=== PATIENT | female | born 1955 | race Caucasian/White ===

== ENCOUNTER 2017-09-17 10:39 | Inpatient (IN) | payer OTHER ==
[~2017-09-17] VITALS: Ht 177.8 cm; Wt 107.1 kg
[2017-09-17] VITALS (8 sets, daily range): BP systolic 79–121; BP diastolic 43–86
[2017-09-17] MEDS ORDERED: SODIUM CHLORIDE 0.9% 1,000 ML IV ONE ×2 (10:46)
[2017-09-17] MEDS ORDERED: DIPHENOXYLATE W/ATROPINE 2.5 MG TAB PO ONE (11:00)
[2017-09-17] MEDS ORDERED: ONDANSETRON HCL 4 MG/2 ML VIAL IV ONE (11:00)
[2017-09-17] MEDS ORDERED: PANTOPRAZOLE 40 MG/10 ML VIAL IV ONE (13:00)
[2017-09-17] MEDS ORDERED: PANTOPRAZOLE 80 MG in SODIUM CHL 0.9% 60 ML IV ONE (13:00)
[2017-09-17 13:34] LABS: Hemoglobin 11.9 g/dL (12.2-16.2)
[2017-09-17 13:36] LABS: Hematocrit 38.2 % (36.0-46.0); Mean Corpuscular Hemoglobin 28.6 pg (28.0-32.0); Mean Corpuscular Hgb Conc. 31.2 g/dL (32.0-36.0); Mean Corpuscular Volume 91.6 fL (80.0-100.0); Platelet Count (auto) 254 10^3/uL (140-450); Red Blood Cells 4.17 10^6/uL (4.0-5.20); Red Cell Distribution Width 16.1 % (11.8-14.3); White Blood Cell 25.2 10^3/uL (4.4-10.8)
[2017-09-17 13:48] LABS: Basophils % (manual) 0 (0.0-2.0); Blast Cells 0; Eosinophils % (manual) 0 (0-7); Metamyelocytes % 0; Myelocytes % 0; Promyelocytes % 0; Reactive Lymphocytes 0
[2017-09-17 13:50] LABS: Urine Bacteria NONE SEEN /hpf (None Seen); Urine Blood 2+ /uL (Negative); Urine Mucus FEW (None Seen); Urine WBC 9 /hpf (0 - 5)
[2017-09-17 13:58] LABS: Albumin 2.5 g/dL (3.4-5.0); BUN/Creatinine Ratio 17.6; Bilirubin, Total 0.6 mg/dL (0.2-1.0); Calcium 8.2 mg/dL (8.5-10.1); Potassium 3.6 mmol/L (3.5-5.1); Total Protein 4.4 g/dL (6.4-8.2)
[2017-09-17 14:00] LABS: Lactic Acid w/Reflex 5.1 mmol/L (0.4-2.0)
[2017-09-17 14:08] LABS: INR > 10 (0.9-1.15)
[2017-09-17 14:42] LABS: Band Neutrophils % (manual) 5; Lymphocytes % (manual) 4 (10.0-50.0); Monocytes % (manual) 6 (0-12)
[2017-09-17] MEDS ORDERED: metroNIDAZOLE 500MG/100ML 100 ML IV ONE (14:45)
[2017-09-17] MEDS ORDERED: PIPERACILLIN-TAZOB 3.375GM 100 ML IV ONE (14:45)
[2017-09-17] MEDS ORDERED: PROMETHAZINE HCL 25 MG/ML 1ML IV ONE (15:00)
[2017-09-17] MEDS ORDERED: PROMETHAZINE HCL 25 MG/ML 1ML ONE (15:01)
[2017-09-17] MEDS ORDERED: PROMETHAZINE HCL 25 MG/ML 1ML IV PRN (15:15)
[2017-09-17] MEDS ORDERED: NALBUPHINE HCL 10 MG/1ml INJECTION IM PRN (15:15)
[2017-09-17] MEDS ORDERED: cefTRIAXone 1GM/10ml IVPUSH 10 ML IV ONE (15:15)
[2017-09-17] MEDS ORDERED: NITROGLYCERIN 0.4 MG SL TAB SL PRN (15:45)
[2017-09-17] MEDS ORDERED: PHYTONADIONE (VIT K)10 MG/ML 1ML VIAL SUBCUT ONE (15:45)
[2017-09-17] MEDS ORDERED: TEMAZEPAM 15 MG CAP PO PRN (15:45)
[2017-09-17] MEDS ORDERED: SODIUM CHLORIDE 0.9% 2,000 ML IV ONE (15:45)
[2017-09-17] MEDS: SODIUM CHLORIDE 0.9% 1,000 ML IV SCH (15:58)
[2017-09-17 17:16] LABS: Hematocrit 31.2 % (36.0-46.0); Hemoglobin 9.7 g/dL (12.2-16.2)
[2017-09-17] MEDS: ONDANSETRON HCL 4 MG/2 ML VIAL IV PRN ×2 (17:50→22:03)
[2017-09-17 19:58] LABS: Hematocrit 32.1 % (36.0-46.0); Hemoglobin 10.2 g/dL (12.2-16.2)
[2017-09-17] MEDS ORDERED: FAMOTIDINE 20 MG TAB PO SCH (22:00)
[2017-09-17] MEDS: metroNIDAZOLE 500MG/100ML 100 ML IV SCH (22:03)
[2017-09-17] MEDS: MORPHINE SULF INJ 2 MG/ML SYRINGE 1ML IV PRN (22:18)
[2017-09-18] VITALS (86 sets, daily range): BP systolic 52–150; BP diastolic 35–108
[2017-09-18] MEDS ORDERED: NOREPINEPHRINE 8 MG/250ML KIT 250 ML IV ONE (02:55)
[2017-09-18] MEDS: NOREPINEPHRINE 8 MG/250ML KIT 250 ML IV SCH ×3 (03:00→23:05)
[2017-09-18] MEDS: MORPHINE SULF INJ 2 MG/ML SYRINGE 1ML IV PRN ×6 (04:19→20:54)
[2017-09-18] MEDS: ONDANSETRON HCL 4 MG/2 ML VIAL IV PRN ×2 (04:19→08:15)
[2017-09-18 04:27] LABS: Basophils # (auto) 0 uL; Eosinophils # (auto) 0 uL; Hemoglobin 7.8 g/dL (12.2-16.2); Monocytes # (auto) 0.8 uL; Neutrophils # (auto) 11.2 uL; Nucleated Red Blood Cells % 0.1 %
[2017-09-18 04:31] LABS: Basophils % (auto) 0.1 % (0.0-2.0); Hematocrit 25.1 % (36.0-46.0); Lymphocytes # (auto) 0.9 uL; Lymphocytes % (auto) 6.7 % (10.0-50.0); Mean Corpuscular Hemoglobin 28.5 pg (28.0-32.0); Mean Corpuscular Hgb Conc. 31.1 g/dL (32.0-36.0); Mean Corpuscular Volume 91.8 fL (80.0-100.0); Monocytes % (auto) 6.1 % (0.0-12.0); Neutrophils % (auto) 87.1 % (37.0-80.0); Platelet Count (auto) 169 10^3/uL (140-450); Red Blood Cells 2.73 10^6/uL (4.0-5.20); Red Cell Distribution Width 16.3 % (11.8-14.3); White Blood Cell 12.8 10^3/uL (4.4-10.8)
[2017-09-18 05:01] LABS: BUN/Creatinine Ratio 23.8; Bilirubin, Total 1.4 mg/dL (0.2-1.0); Calcium 7.1 mg/dL (8.5-10.1); Potassium 4.9 mmol/L (3.5-5.1)
[2017-09-18] MEDS: metroNIDAZOLE 500MG/100ML 100 ML IV SCH (06:00)
[2017-09-18] MEDS: SODIUM CHLORIDE 0.9% 1,000 ML IV SCH ×4 (06:00→18:30)
[2017-09-18] MEDS ORDERED: cefTRIAXone 1GM/10ml IVPUSH 10 ML IV SCH (09:00)
[2017-09-18] MEDS ORDERED: IDARUCIZUMAB 2.5 GM/50 ML VIAL IV ONE (09:00)
[2017-09-18] MEDS: PANTOPRAZOLE 40 MG/10 ML VIAL IV SCH (09:27)
[2017-09-18 09:50] LABS: Hematocrit 30.6 % (36.0-46.0); Hemoglobin 9.6 g/dL (12.2-16.2)
[2017-09-18 10:25] LABS: INR > 10 (0.9-1.15)
[2017-09-18] MEDS: PIPERACILLIN-TAZOB 3.375GM 100 ML IV SCH ×3 (11:57→23:19)
[2017-09-18] MEDS: LINEZOLID 600MG/300ML 300 ML IV SCH ×2 (13:52→23:19)
[2017-09-18] MEDS ORDERED: metroNIDAZOLE 500MG/100ML 100 ML IV SCH (14:00)
[2017-09-18] MEDS ORDERED: phytonadione 10 MG in SODIUM CHL 0.9% 50 ML IV ONE (15:45)
[2017-09-18 15:51] LABS: Hematocrit 25.4 % (36.0-46.0); Hemoglobin 8.3 g/dL (12.2-16.2); Mean Corpuscular Hgb Conc. 32.6 g/dL (32.0-36.0); Mean Corpuscular Volume 92.1 fL (80.0-100.0); Platelet Count (auto) 143 10^3/uL (140-450); Red Blood Cells 2.76 10^6/uL (4.0-5.20); Red Cell Distribution Width 15.4 % (11.8-14.3); White Blood Cell 14.7 10^3/uL (4.4-10.8)
[2017-09-18 15:52] LABS: Basophils % (manual) 0 (0.0-2.0); Blast Cells 0; Eosinophils % (manual) 0 (0-7); Myelocytes % 0; Promyelocytes % 0; Reactive Lymphocytes 0
[2017-09-18 16:33] LABS: Albumin 2.1 g/dL (3.4-5.0); BUN/Creatinine Ratio 24.2; Bilirubin, Total 2.2 mg/dL (0.2-1.0); Potassium 5.5 mmol/L (3.5-5.1); Total Protein 4.3 g/dL (6.4-8.2)
[2017-09-18 16:54] LABS: Fibrinogen 290.4 mg/dL (177-375); INR 1.52 (0.9-1.15); Partial Thromboplastin Time 34.6 sec (23.78-33.04); Prothrombin Time 15.9 sec (9.27-12.13)
[2017-09-18] MEDS ORDERED: SODIUM CHLORIDE 0.9% 500 ML IV ONE (17:30)
[2017-09-18 18:01] LABS: Band Neutrophils % (manual) 57; Lymphocytes % (manual) 8 (10.0-50.0); Monocytes % (manual) 3 (0-12)
[2017-09-18 18:02] LABS: Metamyelocytes % 3
[2017-09-18] MEDS: VANCOMYCIN HCL 125MG/5ML ORAL SOL PO SCH ×2 (18:09→22:00)
[2017-09-19] VITALS (93 sets, daily range): BP systolic 74–152; BP diastolic 33–112
[2017-09-19] MEDS: SODIUM CHLORIDE 0.9% 1,000 ML IV SCH (01:10)
[2017-09-19 01:13] LABS: Mean Corpuscular Hemoglobin 28.9 pg (28.0-32.0); Mean Corpuscular Hgb Conc. 32.1 g/dL (32.0-36.0); Mean Corpuscular Volume 89.9 fL (80.0-100.0); Platelet Count (auto) 122 10^3/uL (140-450); Red Blood Cells 3.45 10^6/uL (4.0-5.20); Red Cell Distribution Width 15.4 % (11.8-14.3); White Blood Cell 17.2 10^3/uL (4.4-10.8)
[2017-09-19 01:22] LABS: Basophils % (manual) 0 (0.0-2.0); Blast Cells 0; Eosinophils % (manual) 0 (0-7); Promyelocytes % 0; Reactive Lymphocytes 0
[2017-09-19 01:32] LABS: Albumin 1.9 g/dL (3.4-5.0); BUN/Creatinine Ratio 22.7; Calcium 6.1 mg/dL (8.5-10.1)
[2017-09-19 01:37] LABS: Potassium 5.7 mmol/L (3.5-5.1)
[2017-09-19 01:41] LABS: Bilirubin, Total 2.6 mg/dL (0.2-1.0); Total Protein 4.3 g/dL (6.4-8.2)
[2017-09-19 01:44] LABS: Band Neutrophils % (manual) 37; Lymphocytes % (manual) 7 (10.0-50.0); Metamyelocytes % 12; Monocytes % (manual) 4 (0-12); Myelocytes % 2
[2017-09-19] MEDS: LINEZOLID 600MG/300ML 300 ML IV SCH (02:36)
[2017-09-19 03:50] LABS: INR 2.1 (0.9-1.15); Prothrombin Time 21.5 sec (9.27-12.13)
[2017-09-19] MEDS: PIPERACILLIN-TAZOB 3.375GM 100 ML IV SCH (05:03)
[2017-09-19] MEDS: VANCOMYCIN HCL 125MG/5ML ORAL SOL PO SCH ×2 (05:03→12:00)
[2017-09-19] MEDS ORDERED: SODIUM POLYSTYRENE SULF 15GM/60ML SUSP PO ONE (05:45)
[2017-09-19] MEDS ORDERED: CALCIUM GLUC 4.65meq/50ml D5AE 50 ML IV ONE (05:45)
[2017-09-19] MEDS ORDERED: CALCIUM GLUC 4.65 MEQ/10ML 10 ML IV ONE (05:57)
[2017-09-19] MEDS ORDERED: DEXTROSE 50% SYRINGE 50 ML IV ONE (05:58)
[2017-09-19] MEDS ORDERED: SODIUM BICARBONATE 8.4% INJ 50ML SYRINGE ONE (05:59)
[2017-09-19] MEDS ORDERED: InsuLIN REG 1unit/0.01ml Soln (100units/ml) IV ONE (06:00)
[2017-09-19] MEDS ORDERED: DEXTROSE (50%) 50ML SYRG IV ONE (06:00)
[2017-09-19] MEDS ORDERED: SODIUM BICARBONATE 50ML VIAL 50 ML in SOD CHL 0.45% 1,000 ML IV SCH (06:00)
[2017-09-19] MEDS ORDERED: InsuLIN REG 1unit/0.01ml Soln (100units/ml) ONE (06:00)
[2017-09-19] MEDS ORDERED: SODIUM BICARBONATE 8.4 % INJ 50ML VIAL IV ONE ×4 (06:00→08:30)
[2017-09-19] MEDS ORDERED: SODIUM BICARBONATE 50ML VIAL 100 ML in SOD CHL 0.45% 1,000 ML IV SCH ×2 (06:45→07:45)
[2017-09-19] MEDS ORDERED: SODIUM BICARBONATE 50ML VIAL 100 ML in SOD CHL 0.45% 1,000 ML IV ONE (06:45)
[2017-09-19] MEDS ORDERED: ROCURONIUM 10MG/ML 10ML VIAL IV ONE (08:01)
[2017-09-19] MEDS ORDERED: ETOMIDATE (2MG/ML) 20ML VIAL IV ONE (08:01)
[2017-09-19] MEDS ORDERED: SUCCINYLCHOLINE CHLORIDE 20 MG/ML 10ML VIAL IV ONE (08:02)
[2017-09-19] MEDS ORDERED: MIDAZOLAM DRIP 50 mg/50mL 50 ML IV ONE (08:13)
[2017-09-19] MEDS ORDERED: EPOETIN ALFA 10,000 UNIT/1 ML VIAL IV ONE (09:00)
[2017-09-19] MEDS: MIDAZOLAM DRIP 50 mg/50mL 50 ML IV SCH (09:00)
[2017-09-19] MEDS ORDERED: SODIUM CHL 0.9% 1000 ML BAG XX ONE (09:00)
[2017-09-19] MEDS: SODIUM BICARBONATE 50ML VIAL 150 ML in D5W 5% 1,000 ML IV SCH ×3 (09:43→20:38)
[2017-09-19 12:36] LABS: Albumin 1.7 g/dL (3.4-5.0); Potassium 4.5 mmol/L (3.5-5.1)
[2017-09-19 12:47] LABS: Bilirubin, Total 2.3 mg/dL (0.2-1.0)
[2017-09-19 13:14] LABS: BUN/Creatinine Ratio 20.9
[2017-09-19] MEDS: PIPERACILLIN-TAZOB 2.25GM 50 ML IV SCH ×2 (14:27→21:58)
[2017-09-19] MEDS: PANTOPRAZOLE 40 MG/10 ML VIAL IV SCH (14:27)
[2017-09-19] MEDS ORDERED: PHENYLEPHRINE INJ 20 MG in SODIUM CHL 0.9% 250 ML IV SCH (14:43)
[2017-09-19] MEDS ORDERED: PHENYLEPHRINE IV 250 ML IV ONE (14:53)
[2017-09-19] MEDS: NOREPINEPHRINE 8 MG/250ML KIT 250 ML IV SCH (23:27)
[2017-09-19] MEDS: PHENYLEPHRINE INJ 20 MG in D5W 5% 250 ML IV SCH (23:45)
[2017-09-20] VITALS (77 sets, daily range): BP systolic 99–141; BP diastolic 54–80
[2017-09-20] MEDS: LINEZOLID 600MG/300ML 300 ML IV SCH (00:37)
[2017-09-20] MEDS: MIDAZOLAM DRIP 50 mg/50mL 50 ML IV SCH ×5 (00:38→21:52)
[2017-09-20] MEDS: PHENYLEPHRINE INJ 20 MG in D5W 5% 250 ML IV SCH ×3 (00:50→15:09)
[2017-09-20 03:58] LABS: Hemoglobin 9.3 g/dL (12.2-16.2); Mean Corpuscular Hemoglobin 28.9 pg (28.0-32.0); Mean Corpuscular Hgb Conc. 33.3 g/dL (32.0-36.0); Mean Corpuscular Volume 86.8 fL (80.0-100.0); Platelet Count (auto) 67 10^3/uL (140-450); Red Blood Cells 3.23 10^6/uL (4.0-5.20); Red Cell Distribution Width 16.3 % (11.8-14.3); White Blood Cell 18.7 10^3/uL (4.4-10.8)
[2017-09-20 04:08] LABS: Albumin 1.6 g/dL (3.4-5.0); Potassium 3.7 mmol/L (3.5-5.1)
[2017-09-20 04:10] LABS: BUN/Creatinine Ratio 15.4; Basophils % (manual) 0 (0.0-2.0); Blast Cells 0; Eosinophils % (manual) 0 (0-7); Myelocytes % 0; Promyelocytes % 0; Reactive Lymphocytes 0; Total Protein 4.1 g/dL (6.4-8.2)
[2017-09-20 04:18] LABS: Bilirubin, Total 1.9 mg/dL (0.2-1.0)
[2017-09-20 04:31] LABS: INR 3.07 (0.9-1.15); Prothrombin Time 30.8 sec (9.27-12.13)
[2017-09-20 04:38] LABS: Partial Thromboplastin Time 84.3 sec (23.78-33.04)
[2017-09-20 05:31] LABS: Band Neutrophils % (manual) 13; Lymphocytes % (manual) 19 (10.0-50.0); Metamyelocytes % 1; Monocytes % (manual) 7 (0-12)
[2017-09-20] MEDS: PIPERACILLIN-TAZOB 2.25GM 50 ML IV SCH ×3 (06:00→21:42)
[2017-09-20] MEDS: SODIUM BICARBONATE 50ML VIAL 150 ML in D5W 5% 1,000 ML IV SCH (06:48)
[2017-09-20] MEDS: NOREPINEPHRINE 8 MG/250ML KIT 250 ML IV SCH ×2 (06:49→21:47)
[2017-09-20] MEDS ORDERED: SODIUM CHL 0.9% 1000 ML BAG XX ONE (07:30)
[2017-09-20] MEDS ORDERED: EPOETIN ALFA 10,000 UNIT/1 ML VIAL IV ONE (07:30)
[2017-09-20] MEDS: PANTOPRAZOLE 40 MG/10 ML VIAL IV SCH (13:07)
[2017-09-20] MEDS: ALBUMIN 25% 50 ML IV SCH ×2 (13:07→17:39)
[2017-09-20] MEDS: VANCOMYCIN HCL 125MG/5ML ORAL SOL GT SCH ×3 (13:08→23:33)
[2017-09-20 15:07] LABS: Urine Bacteria NONE SEEN /hpf (None Seen); Urine Blood 2+ /uL (Negative); Urine Budding Yeast LOADED /hpf (None Seen); Urine Specific Gravity 1.024 (1.001-1.035); Urine WBC 20 /hpf (0 - 5)
[2017-09-20] MEDS: MORPHINE SULF INJ 2 MG/ML SYRINGE 1ML IV PRN ×3 (15:09→16:49)
[2017-09-20 19:20] LABS: Magnesium 2.3 mg/dL (1.6-2.6); Phosphorus 4.4 mg/dL (2.5-4.90); Potassium 3.9 mmol/L (3.5-5.1)
[2017-09-21] VITALS (118 sets, daily range): BP systolic 91–157; BP diastolic 48–95
[2017-09-21] MEDS: PHENYLEPHRINE INJ 20 MG in D5W 5% 250 ML IV SCH ×3 (01:50→18:30)
[2017-09-21] MEDS: ALBUMIN 25% 50 ML IV SCH (02:32)
[2017-09-21 03:53] LABS: Hematocrit 25.3 % (36.0-46.0); Hemoglobin 8.4 g/dL (12.2-16.2); Mean Corpuscular Hemoglobin 29.3 pg (28.0-32.0); Mean Corpuscular Hgb Conc. 33.4 g/dL (32.0-36.0); Mean Corpuscular Volume 87.7 fL (80.0-100.0); Platelet Count (auto) 38 10^3/uL (140-450); Red Blood Cells 2.89 10^6/uL (4.0-5.20); Red Cell Distribution Width 16.1 % (11.8-14.3); White Blood Cell 13.1 10^3/uL (4.4-10.8)
[2017-09-21 03:57] LABS: Basophils % (manual) 0 (0.0-2.0); Blast Cells 0; Metamyelocytes % 0; Myelocytes % 0; Promyelocytes % 0; Reactive Lymphocytes 0
[2017-09-21 04:03] LABS: Albumin 1.8 g/dL (3.4-5.0); BUN/Creatinine Ratio 11.8; Calcium 6.3 mg/dL (8.5-10.1); Potassium 3.8 mmol/L (3.5-5.1)
[2017-09-21 04:19] LABS: Total Protein 4.5 g/dL (6.4-8.2)
[2017-09-21 04:23] LABS: INR 2.54 (0.9-1.15)
[2017-09-21 04:28] LABS: Partial Thromboplastin Time > 170.00 sec (23.78-33.04)
[2017-09-21] MEDS: PIPERACILLIN-TAZOB 2.25GM 50 ML IV SCH (05:23)
[2017-09-21] MEDS: VANCOMYCIN HCL 125MG/5ML ORAL SOL GT SCH ×4 (05:23→22:13)
[2017-09-21 06:10] LABS: Band Neutrophils % (manual) 3; Eosinophils % (manual) 1 (0-7); Lymphocytes % (manual) 15 (10.0-50.0); Monocytes % (manual) 3 (0-12)
[2017-09-21 07:14] LABS: Hemoglobin 8.3 g/dL (12.2-16.2)
[2017-09-21 07:16] LABS: Hematocrit 24.6 % (36.0-46.0)
[2017-09-21] MEDS ORDERED: EPOETIN ALFA 10,000 UNIT/1 ML VIAL IV ONE (07:30)
[2017-09-21] MEDS ORDERED: SODIUM CHL 0.9% 1000 ML BAG XX ONE (07:30)
[2017-09-21] MEDS: NOREPINEPHRINE 8 MG/250ML KIT 250 ML IV SCH (09:30)
[2017-09-21] MEDS: PANTOPRAZOLE 40 MG/10 ML VIAL IV SCH (10:09)
[2017-09-21] MEDS: cefTRIAXone 1GM/10ml IVPUSH 10 ML IV SCH (12:02)
[2017-09-21] MEDS: ALBUMIN 25% 100 ML IV SCH ×2 (14:58→20:49)
[2017-09-21] MEDS: MORPHINE SULF INJ 2 MG/ML SYRINGE 1ML IV PRN ×2 (21:01→21:31)
[2017-09-21] MEDS: MIDAZOLAM DRIP 50 mg/50mL 50 ML IV SCH (22:14)
[2017-09-22] VITALS (113 sets, daily range): BP systolic 105–163; BP diastolic 23–117
[2017-09-22] MEDS: MORPHINE SULF INJ 2 MG/ML SYRINGE 1ML IV PRN (01:39)
[2017-09-22] MEDS: PHENYLEPHRINE INJ 20 MG in D5W 5% 250 ML IV SCH ×3 (02:50→19:30)
[2017-09-22] MEDS: ALBUMIN 25% 100 ML IV SCH (04:34)
[2017-09-22 04:48] LABS: Hematocrit 26.9 % (36.0-46.0); Mean Corpuscular Hemoglobin 29.2 pg (28.0-32.0); Mean Corpuscular Hgb Conc. 33.5 g/dL (32.0-36.0); Platelet Count (auto) 51 10^3/uL (140-450); Red Blood Cells 3.09 10^6/uL (4.0-5.20); Red Cell Distribution Width 15.5 % (11.8-14.3); White Blood Cell 11.9 10^3/uL (4.4-10.8)
[2017-09-22 04:49] LABS: Basophils % (manual) 0 (0.0-2.0); Blast Cells 0; Eosinophils % (manual) 0 (0-7); Promyelocytes % 0; Reactive Lymphocytes 0
[2017-09-22 05:02] LABS: INR 1.4 (0.9-1.15); Partial Thromboplastin Time 42.7 sec (23.78-33.04); Prothrombin Time 14.7 sec (9.27-12.13)
[2017-09-22 05:10] LABS: Albumin 2.4 g/dL (3.4-5.0); BUN/Creatinine Ratio 9.9; Bilirubin, Total 2.1 mg/dL (0.2-1.0); Calcium 7.3 mg/dL (8.5-10.1); Potassium 3.5 mmol/L (3.5-5.1); Total Protein 5.2 g/dL (6.4-8.2)
[2017-09-22] MEDS: VANCOMYCIN HCL 125MG/5ML ORAL SOL GT SCH ×4 (05:30→21:27)
[2017-09-22 06:11] LABS: Band Neutrophils % (manual) 4; Lymphocytes % (manual) 14 (10.0-50.0); Metamyelocytes % 3; Monocytes % (manual) 3 (0-12); Myelocytes % 1
[2017-09-22] MEDS: MIDAZOLAM DRIP 50 mg/50mL 50 ML IV SCH ×2 (07:22→19:56)
[2017-09-22] MEDS: cefTRIAXone 1GM/10ml IVPUSH 10 ML IV SCH (09:03)
[2017-09-22] MEDS: PANTOPRAZOLE 40 MG/10 ML VIAL IV SCH (09:03)
[2017-09-22] MEDS ORDERED: fentaNYL Drip 2500mCg/250mlNS 250 ML IV SCH (10:54)
[2017-09-22] MEDS ORDERED: BUMETANIDE (0.25MG/ML) 4 ML VIAL IV ONE (11:00)
[2017-09-22] MEDS ORDERED: MICAFUNGIN SODIUM 100 MG in SODIUM CHL 0.9% 100 ML IV ONE (14:30)
[2017-09-23] MEDS ORDERED: SODIUM CHL 0.9% 1000 ML BAG XX ONE (08:00)
[2017-09-23] MEDS ORDERED: EPOETIN ALFA 10,000 UNIT/1 ML VIAL IV ONE (08:00)
[2017-09-23] MEDS ORDERED: MICAFUNGIN SODIUM 100 MG in SODIUM CHL 0.9% 100 ML IV SCH (10:00)
== END 2017-09-23 00:06 | disposition short-term general hospital (02) | DRG 871 ==
LOC: ER 10:39 → EDBD 10:39 → OVERFLOW 10:40 → ICU WEST 09-18 01:36
PROVIDERS: ADMIT Internal Medicine; ATTEND Internal Medicine
PROC: 30233L1 Transfusion of Nonautologous Fresh Plasma into Peripheral Vein, Percutaneous Approach (ICD-10-PCS; 2017-09-18)
PROC: 30233N1 Transfusion of Nonautologous Red Blood Cells into Peripheral Vein, Percutaneous Approach (ICD-10-PCS; 2017-09-18)
PROC: 30233K1 Transfusion of Nonautologous Frozen Plasma into Peripheral Vein, Percutaneous Approach (ICD-10-PCS; 2017-09-18)
PROC: 5A1945Z Respiratory Ventilation, 24-96 Consecutive Hours (ICD-10-PCS; principal; 2017-09-19)
PROC: 0BH17EZ Insertion of Endotracheal Airway into Trachea, Via Natural or Artificial Opening (ICD-10-PCS; 2017-09-19)
PROC: 5A1D70Z Performance of Urinary Filtration, Intermittent, Less than 6 Hours Per Day (ICD-10-PCS; 2017-09-19)
PROC: 05HM33Z Insertion of Infusion Device into Right Internal Jugular Vein, Percutaneous Approach (ICD-10-PCS; 2017-09-19)
PROC: 5A1D70Z Performance of Urinary Filtration, Intermittent, Less than 6 Hours Per Day (ICD-10-PCS; 2017-09-20)
PROC: 30233R1 Transfusion of Nonautologous Platelets into Peripheral Vein, Percutaneous Approach (ICD-10-PCS; 2017-09-21)
PROC: 5A1D70Z Performance of Urinary Filtration, Intermittent, Less than 6 Hours Per Day (ICD-10-PCS; 2017-09-21)
DX: A41.9 Sepsis, unspecified organism (principal); J18.9 Pneumonia, unspecified organism; N17.0 Acute kidney failure with tubular necrosis; J96.00 Acute respiratory failure, unspecified whether with hypoxia or hypercapnia; K72.00 Acute and subacute hepatic failure without coma; R65.21 Severe sepsis with septic shock; D68.9 Coagulation defect, unspecified; N18.4 Chronic kidney disease, stage 4 (severe); E87.2 Acidosis; E44.0 Moderate protein-calorie malnutrition; E87.0 Hyperosmolality and hypernatremia; J44.0 Chronic obstructive pulmonary disease with (acute) lower respiratory infection; N28.0 Ischemia and infarction of kidney; N39.0 Urinary tract infection, site not specified; R10.9 Unspecified abdominal pain; E83.51 Hypocalcemia; I12.9 Hypertensive chronic kidney disease with stage 1 through stage 4 chronic kidney disease, or unspecified chronic kidney disease; K52.9 Noninfective gastroenteritis and colitis, unspecified; D64.9 Anemia, unspecified; D69.6 Thrombocytopenia, unspecified; E87.5 Hyperkalemia; I48.91 Unspecified atrial fibrillation; I70.0 Atherosclerosis of aorta; I70.8 Atherosclerosis of other arteries; K43.9 Ventral hernia without obstruction or gangrene; Z80.6 Family history of leukemia; Z82.49 Family history of ischemic heart disease and other diseases of the circulatory system; Z83.3 Family history of diabetes mellitus; Z87.891 Personal history of nicotine dependence; Z90.49 Acquired absence of other specified parts of digestive tract; Z99.2 Dependence on renal dialysis
CPT/HCPCS: 36415; 36600; 51702; 71045; 74176; 80053; 80061; 81001; 82805; 83605; 83615; 83735; 83880; 84100; 84132; 84484; 85007; 85014; 85018; 85025; 85027; 85384; 85610; 85730; 86850; 86880; 86900; 86901; 86920; 87040; 87045; 87070; 87077; 87081; 87086; 87186; 87205; 87493; 87899; 90935; 93005; 94002; 94003; 96361; 96365; 96368; 96375; 99291; C9113; G0378; J0330; J0885; J1642; J1815; J2248; J2250; J2405; J2543; J3430; J3490; J7060; P9047